=== PATIENT | female | born 1990 | race Caucasian/White ===

== ENCOUNTER 2022-07-09 09:00 | Inpatient (IN) ==
[~2022-07-09 09:00] MED LIST: Famotidine 20 MG/2 ML VIAL IVP PRN; Metoclopramide 10 MG/2 ML VIAL IVP PRN; Naloxone 0.4 MG/ML INJ IVP PRN
[2022-07-09 09:52] LABS: Basophils # 0.1 K/mcL (0.0-0.2); Basophils % 0.2 %; Hemoglobin 12.9 g/dL (11.5-15.4); Immature Granulocytes % 0.7 % (0-4); Lymphocytes # 1.4 K/mcL (0.6-4.6); Lymphocytes % 6.2 %; Mean Corpuscular HGB Conc 34.9 g/dL (31.6-35.5); Mean Corpuscular Hemoglobin 29.5 pg (28.0-33.3); Mean Corpuscular Volume 84.5 fL (83.0-100.0); Mean Platelet Volume 10.4 fL (9.4-12.4); Monocytes # 0.6 K/mcL (0.0-1.3); Monocytes % 2.5 %; Platelet Count 214 K/mcL (140-400); Red Blood Count 4.38 M/mcL (3.82-4.97); Red Cell Distribution Width 14.3 % (11.5-14.5); Segmented Neutrophils % 90.4 %; White Blood Count 22.2 K/mcL (4.3-11.1)
[2022-07-09] MEDS ORDERED: Oxytocin 30 UNIT/503 ML BAG IVC ONE (10:46)
[2022-07-09] MEDS ORDERED: Ringers Solution, Lactated 1,000 ML ONE ×2 (11:13→12:04)
[2022-07-09] MEDS ORDERED: *HR* FentaNYL (PF) 100 MCG/2 ML VIAL ONE (11:37)
[2022-07-09] MEDS ORDERED: *HR* Morphine Sulfate/PF 10 MG/10 ML AMPUL ONE (11:37)
[2022-07-09] MEDS ORDERED: *HR* Oxytocin 10 UNIT/ML VIAL ONE ×2 (11:54→12:04)
[2022-07-09] MEDS ORDERED: Tranexamic Acid 1,000 MG/100ML 1,000 MG/100 ML PIGGYBACK IVPB ONE (11:56)
[2022-07-09] MEDS ORDERED: Methylergonovine 0.2 MG/ML AMPUL IM ONE (12:29)
[2022-07-09] MEDS ORDERED: Ondansetron ODT 4 MG TAB.RAPDIS SL PRN (16:29)
[2022-07-09] MEDS ORDERED: Acetaminophen 325 MG TABLET PO SCH (16:29)
[2022-07-09] MEDS ORDERED: Oxytocin 30 UNIT/503 ML BAG IVC SCH (16:29)
[2022-07-09] MEDS ORDERED: Benzocaine/Menthol 56 GM AEROSOL SPRAY TP PRN (16:29)
[2022-07-09] MEDS ORDERED: Lanolin 7 G OINT...G. TP PRN (16:29)
[2022-07-09] MEDS ORDERED: Ibuprofen 600 MG TABLET PO SCH (17:11)
[2022-07-10 05:30] LABS: Basophils # 0.1 K/mcL (0.0-0.2); Basophils % 0.3 %; Eosinophils # 0.1 K/mcL (0.0-0.6); Eosinophils % 0.4 %; Hematocrit 34.1 % (35.3-44.9); Hemoglobin 11.9 g/dL (11.5-15.4); Immature Granulocytes % 1.1 % (0-4); Lymphocytes # 3.5 K/mcL (0.6-4.6); Lymphocytes % 14.9 %; Mean Corpuscular HGB Conc 34.9 g/dL (31.6-35.5); Mean Corpuscular Hemoglobin 30.1 pg (28.0-33.3); Mean Corpuscular Volume 86.1 fL (83.0-100.0); Mean Platelet Volume 10.8 fL (9.4-12.4); Monocytes # 1.1 K/mcL (0.0-1.3); Monocytes % 4.5 %; Neutrophils # 18.7 K/mcL (1.6-8.9); Platelet Count 205 K/mcL (140-400); Red Blood Count 3.96 M/mcL (3.82-4.97); Red Cell Distribution Width 14.6 % (11.5-14.5); Segmented Neutrophils % 78.8 %; White Blood Count 23.8 K/mcL (4.3-11.1)
[2022-07-10 08:24] VITALS: BP 99/54; PULSE 87; TEMP 98; O2SAT 99
[2022-07-10] MEDS ORDERED: Prenatal Vit/FA 1 EACH TABLET PO SCH (09:00)
== END 2022-07-10 12:30 | disposition home or self-care (01) | DRG 806 ==
LOC: 1NENULAB → 1NENUOBS 14:47
PROVIDERS: ADMIT Registered Nurse; ATTEND Registered Nurse